=== PATIENT | male | born 1940 | race Caucasian/White ===

== ENCOUNTER 2018-11-19 16:23 | Emergency (ER) | payer OTHER ==
[~2018-11-19] VITALS: Ht 182.9 cm; Wt 74.0 kg
--- NOTE | 2018-11-19 16:36 | NUR ---
78 Y/O MALE BIB AMBULANCE WITH C/O SYNCOPE. "I WAS AT THE GYM TODAY AND WAS IN THE HOT TUB. WHEN I GOT OUT, I PASSED OUT. I DIDN'T HAVE ANY WATER TODAY AND HAD A FEW BEERS THIS AFTERNOON. I WAS IN THE HOT TUB TOO LONG TODAY. WHEN I GOT OUT I FELL. 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 600 NS ADMINISTERED. NO C/O N/V/D, TRAUMA, CP, SOB. 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
[2018-11-19] MEDS ORDERED: PLEASE ENTER ALLERGIES MC SCH (17:00)
[2018-11-19] MEDS ORDERED: SODIUM CHLORIDE FLUSH 10ML SYR IVF ONE (17:00)
[2018-11-19] MEDS ORDERED: SODIUM CHLORIDE 0.9% 1,000ML IVBOLUS ONE (17:00)
[2018-11-19 17:14] LABS: BASOPHILS # (AUTO) 0.04 x10^3/uL (0-0.1); BASOPHILS % (AUTO) 1 % (0-1); EOSINOPHILS # (AUTO) 0.07 x10^3/uL (0-0.4); EOSINOPHILS % (AUTO) 1 % (1-7); LYMPHOCYTES # (AUTO) 1.17 x10^3/uL (1-3.4); LYMPHOCYTES % (AUTO) 24 % (22-44); MD NO; MEAN CORPUSCULAR HEMOGLOBIN 31.7 pg (27.5-34.5); MEAN CORPUSCULAR VOLUME 93.4 fL (81-97); MEAN PLATELET VOLUME 9.3 fL (7.4-10.4); MONOCYTES # (AUTO) 0.31 x10^3/uL (0.2-0.8); MONOCYTES % (AUTO) 7 % (2-9); NEUTROPHILS # (AUTO) 3.27 x10^3/uL (1.8-6.8); NEUTROPHILS % (AUTO) 67 % (42-75); PLATELET COUNT 189 x10^3/uL (130-400); RED BLOOD COUNT 4.59 x10^6/uL (4.38-5.82); RED CELL DISTRIBUTION WIDTH 13.4 % (9.4-14.8)
[2018-11-19 17:17] LABS: ALBUMIN 3.1 g/dL (3.4-5.0); ANION GAP 8 mmol/L (5-15); CALCIUM 7.7 mg/dL (8.5-10.1); CHLORIDE 107 mmol/L (98-107)
[2018-11-19 17:58] VITALS: BP 123/78
--- NOTE | 2018-11-19 18:04 | NUR ---
LATE ENTRY FOR 1740 PT RESTING ON GURNEY. NO ACUTE DISTRESS NOTED. BEDSIDE. 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 NO NEEDS REQUESTED AT THIS TIME.
--- NOTE | 2018-11-19 18:13 | NUR ---
Patient given discharge instructions and they have confirmed that they understand the instructions. Patient ambulatory with steady gait.
== END 2018-11-19 18:15 | disposition home or self-care (01) ==
LOC: EDSEX 16:23 → EDBD 16:23 → ED 18:00
DX: E86.0 Dehydration (principal); I95.9 Hypotension, unspecified; R55 Syncope and collapse; I10 Essential (primary) hypertension
CPT/HCPCS: 36415; 80048; 82040; 85025; 99283; J7030